=== PATIENT | male | born 1965 | race Caucasian/White ===

== ENCOUNTER 2016-07-19 11:14 | Emergency (ER) | payer MEDICAID ==
[~2016-07-19] VITALS: Ht 180.3 cm; Wt 82.6 kg
--- NOTE | 2016-07-19 11:14 | NUR ---
BROUGHT BACK TO BED #7 AND TRIAGED. REPORT GIVEN TO BOSSMAN
[2016-07-19 11:15] VITALS: BP 122/62; PULSE 64; RESP 19; TEMP 97.8; O2SAT 100
--- NOTE | 2016-07-19 12:06 | NUR ---
Received report. Patient in stable condition, alert and oriented x4. States was trimming trees nine days ago and was using one tree to push right side of body against for strength while pushing on another tree with left leg. States that he heard knuckles crack and ribs have been sore/in pain ever since. Denies any pains in knuckles. No deformities/injuries noted. Denies falling. Skin intact. No other complaints/injuries per patient or noted.
--- NOTE | 2016-07-19 13:16 | NUR ---
Dr Andres at bedside examining patient
[2016-07-19 13:30] VITALS: BP 120/67; PULSE 67; RESP 18; TEMP 97.3; O2SAT 100
--- NOTE | 2016-07-19 13:30 | NUR ---
Patient given written and verbal discharge instructions and verbalizes understanding. ER MD discussed with patient the results and treatment provided. Patient in stable condition. ID arm band removed. Rx of Motrin and [place] given. Patient educated on pain management and to follow up with PMD in 4-5 days per MD order. Pain Scale 2/10. Opportunity for questions provided and answered.
== END 2016-07-19 13:30 | disposition home or self-care (01) ==
LOC: SED 11:14
DX: S20.20XA Contusion of thorax, unspecified, initial encounter (principal); F17.200 Nicotine dependence, unspecified, uncomplicated; X58.XXXA Exposure to other specified factors, initial encounter; Y93.89 Activity, other specified; Y92.89 Other specified places as the place of occurrence of the external cause; Y99.8 Other external cause status
CPT/HCPCS: 71010; 71100; 99284